=== PATIENT | male | born 1955 | race Hispanic/Latino ===

== ENCOUNTER → 2019-07-14 | Day surgery (SDC) | payer OTHER ==
[~2019-07-14] MED LIST: ALLOPURINOL300 MG PO; AMLODIPINE BESY10 MG PO; CARVEDILOL6.25 MG PO; CEFTRIAXONE SOD 1 GM/NS 50 ML 50 ML IV ONE; CLONIDINE HCL0.1 MG PO; DEXAMETHASONE SOD PHOS INJ 4 MG/ML VIAL ONE; EPHEDRINE SULFATE INJ 50 MG/ML VIAL ONE; FENTANYL CITRATE/PF 100MCG/2 ML INJ ONE; FLOMAX0.4 MG PO; INDOMETHACIN25 MG PO; LIDOCAINE HCL 2% LOCAL INJ 5 ML SDV VIAL INJ ONE; LOSARTAN POTASS25 MG PO; MIDAZOLAM HCL 2 MG/2 ML VIAL ONE; ONDANSETRON HCL INJ 2MG/ML 2ML 2 MG/ML VIAL ONE; PROPOFOL IV EMULSION 10 MG/ML 20 ML VIAL ONE; SEVOFLURANE INHAL SOLN 250 ML PEN BTL ONE
[2019-07-14 08:20] VITALS: BP 147/86
--- NOTE | 2019-07-14 21:25 | Operative Report ---
DATE OF PROCEDURE: 07/14/2019 SURGEON: Eloy Stevens MD PREOPERATIVE DIAGNOSES: Left kidney stone, left colic. POSTOPERATIVE DIAGNOSES: Left kidney stone, left colic. PROCEDURES: 1. Staged left-sided shock wave lithotripsy. 2. Supervision of fluoroscopy. ANESTHESIA: General. ESTIMATED BLOOD LOSS: Minimal. COMPLICATIONS: None. INDICATIONS FOR PROCEDURE: Mr. Coker is a very pleasant 64-year-old male with a history of intermittently symptomatic left-sided kidney stone. He and I had a long discussion about alternatives, risks, and benefits of doing nothing, shock wave lithotripsy, ureteroscopy, percutaneous surgery or open surgery. He voiced understanding of the options, alternatives, risks, and benefits. He elected to proceed. PROCEDURE IN DETAIL: After informed consent was obtained, the patient was taken to the operative suite, placed supine on the operating table, underwent general anesthesia by Anesthesia Service. Stone was localized in the X, Y, and Z planes. A total 3000 shocks were delivered to the stone. The patient tolerated the procedure well and transferred to the recovery room in excellent condition. No untoward effects noted. Details per treatment report. Supervision of fluoroscopy: I was present for the entire procedure and supervised fluoroscopy. There was no radiologist present. Dosage per treatment report. All techniques were utilized to minimize exposure to the patient and staff. Eloy Stevens MD ES/MODL /[id number]
== END | disposition home or self-care (01) ==
LOC: OR 05:37
PROVIDERS: ATTEND Urology
DX: N20.0 Calculus of kidney (principal); N40.1 Benign prostatic hyperplasia with lower urinary tract symptoms; N13.8 Other obstructive and reflux uropathy; R35.1 Nocturia; N43.3 Hydrocele, unspecified; I86.1 Scrotal varices; N43.40 Spermatocele of epididymis, unspecified; I10 Essential (primary) hypertension; M10.9 Gout, unspecified; K21.9 Gastro-esophageal reflux disease without esophagitis; Z01.810 Encounter for preprocedural cardiovascular examination; Z01.812 Encounter for preprocedural laboratory examination; Z11.59 Encounter for screening for other viral diseases; Z84.1 Family history of disorders of kidney and ureter
CPT/HCPCS: 50590; 87635; 93005; J0696; J1100; J2001; J2250; J2405; J3010

== ENCOUNTER → 2019-07-21 | Day surgery (SDC) | payer OTHER ==
--- NOTE | 2019-07-18 13:38 | Diagnostic Imaging Report ---
TECHNIQUE: 2 frontal images of the abdomen. HISTORY: ^PRE-OP KIDNEY STONE ^PT HERE FOR PRE-OP TESTING. COMPARISON: None. IMPRESSION: Nonobstructive radiographic bowel gas pattern. No acute bony abnormality. No free air within the imaged abdomen. Probable pelvic phleboliths. Multiple subcentimeter calcifications overlying the bilateral renal shadows, consistent with nephrolithiasis. Signed by: Romero Haskins MD on 07/18/2019 1:51 PM
[~2019-07-21] MED LIST changes: +ETOMIDATE 2 MG/ML 10 ML INJ IV ONE; -FENTANYL CITRATE/PF 100MCG/2 ML INJ ONE; -MIDAZOLAM HCL 2 MG/2 ML VIAL ONE; -PROPOFOL IV EMULSION 10 MG/ML 20 ML VIAL ONE
[2019-07-21 08:25] VITALS: BP 146/82
--- NOTE | 2019-07-21 12:28 | Operative Report ---
DATE OF PROCEDURE: 07/21/2019 SURGEON: lEoy Stevens MD PREOPERATIVE DIAGNOSIS: Right renal calculi. POSTOPERATIVE DIAGNOSIS: Right renal calculi. PROCEDURES: 1. Staged right-sided shock wave lithotripsy. 2. Supervision of fluoroscopy. ANESTHESIA: General. ESTIMATED BLOOD LOSS: Minimal. COMPLICATIONS: None. INDICATIONS: Mr. Coker is a very pleasant 64-year-old male with a history of intermittently colicky right renal calculi. He and I had a long discussion about alternatives, risks and benefits, including doing nothing, shock wave lithotripsy, ureteroscopy, percutaneous surgery or open surgery. He voiced understanding of the options, alternatives, risks, and benefits. He elected to proceed with shock wave lithotripsy. PROCEDURE IN DETAIL: After informed consent was obtained, the patient was taken to the operative suite, place supine on the operating table, underwent general anesthesia by Anesthesia Service. Stone was localized in the X, Y, and Z planes. Treatment was performed per the treatment report. The patient tolerated procedure well, was transferred to the recovery room in excellent condition. Supervision of fluoroscopy: I was present for the entire procedure and supervised fluoroscopy. There was no radiologist present. Dosages per treatment report. Eloy Stevens MD ES/MODL /[id number]
== END | disposition home or self-care (01) ==
LOC: OR 05:37
PROVIDERS: ATTEND Urology
DX: N20.0 Calculus of kidney (principal); I10 Essential (primary) hypertension; K21.9 Gastro-esophageal reflux disease without esophagitis; F41.9 Anxiety disorder, unspecified; Z01.812 Encounter for preprocedural laboratory examination; Z01.818 Encounter for other preprocedural examination; Z11.59 Encounter for screening for other viral diseases
CPT/HCPCS: 50590; 74018; 87635; J0696; J1100; J2001; J2405